=== PATIENT | female | born 1940 | race Caucasian/White ===

== ENCOUNTER 2019-12-10 17:30 | Emergency (ER) | payer MEDICARE ==
[~2019-12-10] VITALS: Ht 148.6 cm; Wt 62.3 kg
[2019-12-10 17:50] VITALS: BP 130/83
[2019-12-10] MEDS ORDERED: CEPH250T PO (18:49)
== END 2019-12-10 19:08 | disposition home or self-care (01) ==
LOC: ER 17:31
DX: L03.011 Cellulitis of right finger (principal); M79.89 Other specified soft tissue disorders; J45.909 Unspecified asthma, uncomplicated; M19.90 Unspecified osteoarthritis, unspecified site; G89.29 Other chronic pain; Z88.8 Allergy status to other drugs, medicaments and biological substances; Z79.2 Long term (current) use of antibiotics
CPT/HCPCS: 99283

== ENCOUNTER 2020-01-28 07:03 | Emergency (ER) | payer MEDICARE ==
[~2020-01-28] VITALS: Ht 147.3 cm; Wt 62.4 kg
[2020-01-28 07:06] VITALS: BP 137/65
[2020-01-28] MEDS ORDERED: acetaminophen 325mg tablet PO ONE (07:20)
== END 2020-01-28 09:08 | disposition home or self-care (01) ==
LOC: ER 07:03
DX: S63.501A Unspecified sprain of right wrist, initial encounter (principal); J45.909 Unspecified asthma, uncomplicated; M19.90 Unspecified osteoarthritis, unspecified site; G89.29 Other chronic pain; Z98.890 Other specified postprocedural states; Z79.899 Other long term (current) drug therapy; W01.0XXA Fall on same level from slipping, tripping and stumbling without subsequent striking against object, initial encounter; Y93.89 Activity, other specified; Y92.89 Other specified places as the place of occurrence of the external cause; Y99.8 Other external cause status
CPT/HCPCS: 29125; 73110; 99284